=== PATIENT | male | born 1995 | race Hispanic/Latino ===

== ENCOUNTER 2021-03-20 19:27 | Emergency (ER) | payer SELFPAY ==
--- NOTE | 2021-03-20 20:51 | EDPHYS ---
Physician Documentation [facility] Name: Umberto Schilling Jr Age: 25 yrs Sex: Male : 1995 Arrival Date: 03/20/2021 Time: 19:34 Bed 12 Private MD: ED Physician Neto Drummond HPI: 03/20 19:55 This 25 yrs old Male presents to ER via Ambulatory with complaints of S/S of rn Covid. 19:55 The patient or guardian reports cough, flu symptoms, low-grade fever, myalgias, no rn appetite. Onset: The symptoms/episode began/occurred today. Severity of symptoms: At their worst the symptoms were mild, in the emergency department the symptoms are unchanged. Modifying factors: The symptoms are alleviated by nothing, the symptoms are aggravated by nothing. Associated signs and symptoms: Pertinent positives: fever, rhinorrhea, Pertinent negatives: chest pain, vomiting. The patient has not experienced similar symptoms in the past. The patient has not recently seen a physician. Patient reports here for Covid test. Reports fever/chills/congestion/cough/myalgias/fatigue that began today. States meenakshi tested yesterday and was positive for Covid. Denies any chronic medical problems. Not vaccinated. Denies shortness of breath.. Historical: - Allergies: 19:43 No Known Allergies; zb - PMHx: 19:43 None; zb - PSHx: 19:43 None; zb - Immunization history:: Client reports having NOT received the Covid vaccine. - Social history:: Smoking status: Patient reports the use of cigarette tobacco products, denies chronic smoking, but will smoke occasionally. - Family history:: not pertinent. - Hospitalizations: : No recent hospitalization is reported. ROS: 19:55 Constitutional: Positive for fever and chills Eyes: Negative for injury, pain, redness, rn and discharge, ENT: Positive for nasal congestion and loss of taste and smell Neck: Negative for injury, pain, and swelling, Cardiovascular: Negative for chest pain, palpitations, and edema, Respiratory: Positive for cough, negative for shortness of breath Abdomen/GI: Negative for abdominal pain, nausea, vomiting, diarrhea, and constipation, Back: Negative for injury and pain, : Negative for injury, bleeding, discharge, and swelling, MS/Extremity: Negative for injury and deformity, Skin: Negative for injury, rash, and discoloration, Neuro: Negative for headache, numbness, tingling, and seizure. 19:55 All other systems are negative. Exam: 19:55 Constitutional: Thin male no acute distress Head/Face: Normocephalic, atraumatic. rn Eyes: Pupils equal round and reactive to light, extra-ocular motions intact. Lids and lashes normal. Conjunctiva and sclera are non-icteric and not injected. Cornea within normal limits. Periorbital areas with no swelling, redness, or edema. ENT: No stridor Neck: Trachea midline, no thyromegaly or masses palpated, and no cervical lymphadenopathy. Supple, full range of motion without nuchal rigidity, or vertebral point tenderness. No Meningismus. Cardiovascular: Regular rate and rhythm. No pulse deficits. Respiratory: Speaking full sentences, unlabored. No increased work of breathing, no retractions or nasal flaring. Abdomen/GI: Soft, non-tender Skin: Warm, dry with normal turgor. Normal color with no rashes, no lesions, and no evidence of cellulitis. MS/ Extremity: Pulses equal, no cyanosis. Neurovascular intact. Full, normal range of motion. Equal circumference. Neuro: Awake and alert, GCS 15 Vital Signs: 19:41 BP 113 / 77; Pulse 85; Resp 18; Temp 97.8; Pulse Ox 99% on R/A; Weight 52.16 kg; Height zb 5 ft. 7 in. (170.18 cm); 19:41 Body Mass Index 18.01 (52.16 kg, 170.18 cm) zb MDM: 19:49 Patient medically screened. rn 20:49 Differential Diagnosis: Bronchitis Influenza Upper Respiratory Infection Viral Syndrome rn Pneumonia. Data reviewed: vital signs, nurses notes, lab test result(s), and as a result, I will discharge patient. Data interpreted: Pulse oximetry: on room air is 99 %. Interpretation: normal. Counseling: I had a detailed discussion with the patient and/or guardian regarding: the historical points, exam findings, and any diagnostic results supporting the discharge/admit diagnosis, lab results, the need for outpatient follow up, to return to the emergency department if symptoms worsen or persist or if there are any questions or concerns that arise at home. Special discussion: I discussed with the patient/guardian in detail that at this point there is no indication for admission to the hospital. It is understood, however, that if the symptoms persist or worsen the patient needs to return immediately for re-evaluation. ED course: COVID +, no oxygen requirement, will dc home. . 03/20 19:44 Order name: Flu; Complete Time: 20:31 zb 03/20 20:52 Order name: SARS-COV-2 RT PCR EDMS Administered Medications: No medications were administered Disposition Summary: 03/20/21 20:50 Discharge Ordered Location: Home rn Problem: new rn Symptoms: have improved rn Condition: Stable rn Diagnosis - SARS-associated coronavirus as the cause of diseases classified elsewhere rn - Acute upper respiratory infection, unspecified rn Followup: rn - With: Private Physician - When: As needed - Reason: Recheck today's complaints, Re-evaluation by your physician Discharge Instructions: - Discharge Summary Sheet rn - Viral Respiratory Infection, [id number] rn - COVID-19 rn - 10 Things You Can Do to Manage Your COVID-19 Symptoms at Home - [facility] rn Forms: - Medication Reconciliation Form rn - Thank You Letter rn - Antibiotic internet marketing specialist - Prescription Opioid Use rn - Work release form tt3 Signatures: Dispatcher [employer] EDNeto Menendez MD MD rn Brown, Zipporah, RN RN zb Corrections: (The following items were deleted from the chart) 19:59 19:45 CORONAVIRUS+ ordered. EDMS EDMS
--- NOTE | 2021-03-20 20:51 | ER ---
Nurse's Notes [facility] Name: Umberto Schilling Jr Age: 25 yrs Sex: Male : 1995 Arrival Date: 03/20/2021 Time: 19:34 Bed 12 Private MD: Diagnosis: SARS-associated coronavirus as the cause of diseases classified elsewhere;Acute upper respiratory infection, unspecified Presentation: 03/20 19:41 Chief complaint: Patient states: reports shortness of breath, body aches, fatigue that zb started today, denies fever. Coronavirus screen: Vaccine status: Patient reports being unvaccinated. muscle pain, shaking with chills, shortness of breath, Client presents with at least one sign or symptom that may indicate coronavirus-19. Standard/surgical mask placed on the client. Provider contacted for isolation considerations. Ebola Screen: Patient negative for fever greater than or equal to 101.5 degrees Fahrenheit, and additional compatible Ebola Virus Disease symptoms Patient denies exposure to infectious person. Patient denies travel to an Ebola-affected area in the 21 days before illness onset. No symptoms or risks identified at this time. Initial Sepsis Screen: Does the patient meet any 2 criteria? No. Patient's initial sepsis screen is negative. Does the patient have a suspected source of infection? No. Patient's initial sepsis screen is negative. Risk Assessment: Do you want to hurt yourself or someone else? Patient reports no desire to harm self or others. Onset of symptoms was March 20, 2021. 19:41 Method Of Arrival: Ambulatory zb 19:41 Acuity: CHEN 4 zb Historical: - Allergies: 19:43 No Known Allergies; zb - PMHx: 19:43 None; zb - PSHx: 19:43 None; zb - Immunization history:: Client reports having NOT received the Covid vaccine. - Social history:: Smoking status: Patient reports the use of cigarette tobacco products, denies chronic smoking, but will smoke occasionally. - Family history:: not pertinent. - Hospitalizations: : No recent hospitalization is reported. Screenin:15 Abuse screen: Denies threats or abuse. Denies injuries from another. Nutritional zb screening: No deficits noted. Tuberculosis screening: No symptoms or risk factors identified. Fall Risk None identified. Assessment: 20:13 General: Appears in no apparent distress. uncomfortable, Behavior is cooperative, zb Reports feeling ill for 0-12 hours, fatigue for 0-12 hours. Pain: Complains of pain in generalized body aches Pain currently is 7 out of 10 on a pain scale. Quality of pain is described as aching. Neuro: Level of Consciousness is awake, alert, obeys commands, Oriented to person, place, time. Cardiovascular: Patient's skin is warm and dry. Respiratory: Reports shortness of breath at rest cough that is non-productive, Airway is patent Respiratory effort is even, unlabored, Respiratory pattern is regular, symmetrical. Derm: Skin is intact, is healthy with good turgor, Skin is dry, Skin is normal, Skin temperature is warm. Musculoskeletal: Range of motion: intact in all extremities. Vital Signs: 19:41 BP 113 / 77; Pulse 85; Resp 18; Temp 97.8; Pulse Ox 99% on R/A; Weight 52.16 kg; Height zb 5 ft. 7 in. (170.18 cm); 19:41 Body Mass Index 18.01 (52.16 kg, 170.18 cm) zb ED Course: 19:34 Patient arrived in ED. wm 19:43 Neto Drummond MD is Attending Physician. rn 19:43 Triage completed. zb 19:43 Arm band placed on. zb 19:50 Indy Morgan RN is Primary Nurse. zb 20:15 Patient has correct armband on for positive identification. Pulse ox on. NIBP on. Door zb closed. Noise minimized. 20:58 No provider procedures requiring assistance completed. Patient did not have IV access em during this emergency room visit. Administered Medications: No medications were administered Outcome: 20:50 Discharge ordered by . rn 20:58 Discharged to home ambulatory. em 20:58 Condition: stable 20:58 Discharge instructions given to patient, Instructed on discharge instructions, follow up and referral plans. Demonstrated understanding of instructions, follow-up care. 20:59 Patient left the ED. em Signatures: Don Lam RN RN em Nieto, Roman, MD MD rn Brown, Zipporah, RN RN zb Marsh, Wendy Corrections: (The following items were deleted from the chart) 20:15 20:13 Respiratory: Airway is patent Respiratory effort is even, unlabored, Respiratory zb pattern is regular, symmetrical, zb
[2021-03-20 21:06] VITALS: BP 113/77; TEMP 97.8; O2SAT 99
== END 2021-03-20 20:59 | disposition home or self-care (01) ==
LOC: ER 19:27
DX: U07.1 COVID-19 (principal); J06.9 Acute upper respiratory infection, unspecified; F17.210 Nicotine dependence, cigarettes, uncomplicated
CPT/HCPCS: 87804; 99283; U0003

== ENCOUNTER → 2023-10-16 | Emergency (ER) | payer SELFPAY ==
[~2023-10-16] MED LIST: LIDOCAINE 1% MPF 5 ML VIAL ONE
--- OUTSIDE RECORDS SUMMARY | 2023-10-16 11:59 | XMS REPORT | Continuity of Care Document ---
Author Name Unknown Address [address] [place] [address] [facility] th[facility] Address [address] [facility] [address] [place] [address] Care Team Providers Care Dumpcart Driver Name Role Phone Pcp, Patient Does Not Have A Primary Care Physic kuldip Reginaldo Devlin MD Attending Clinician [phone] REGINALDO DEVLIN Attending Clinician Unavailable ALMAS SALOMON Attending Clinician Unavailable Almas Salomon NP Attending Clinician [phone] SHER BUTT Attending Clinician Unavailable Sher Weldon Attending Clinician [phone] Wilda Laurent DO Attending Clinician [phone] Problems Condition Name Condition Details Condition Category Status Onset Date Resolution Date Last Treatment Date Treating Clinician Comments Source No known active problems No known active problems Disease [facility] Allergies, Adverse Reactions, Alerts Allergy Name Allergy Type Status Severity Reaction(s) Onset Date Inactive Date Treating Clinician Comments Source NO KNOWN ALLERGIE S Drug Class Active [facility] Social History Social Habit Start Date Stop Date Quantity Comments Source [facility] Exposure to SARS-CoV-2 (event) 2022-04-22 00:00:00 2022-05-02 16:21:00 Unable to assess [facility] Sex Assigned At 1995 00:00:00 1995 00:00:00 [facility] Smoking Status Start Date Stop Date Source Tobacco smoking consumption unknown [facility] Medications Ordered Medication Name Filled Medication Name Start Date Stop Date Current Medication? Ordering Clinician Indication Dosage Frequency Signature (SIG) Comments Components Source nicotine (NICODERM) 14 mg/24 hr patch 1 Patch 10-03 22:15: 00 Yes 1{patch } 1 Patch, Topical, Administer over 24 Hours, Q24H, First dose on Tue10/04/23 at 1715, Until Discontinu ed, Routine [facility] ziprasidone (GEODON) injection 20 mg 10-03 09:00: 00 10-03 08:53 :00 No 20mg 20 mg, Intramuscu lar, ONCE, 1 dose, On Tue10/04/23 at 0400, STAT
Ch emical Restraint: Yes [facility] lithium carbonate CR 300 mg SR tablet 04-04 01:58: 46 Yes 300mg Take 1 tablet by mouth in the morning and 1 tablet in the evening. [facility] lithium carbonate CR 300 mg SR tablet 04-04 01:58: 46 Yes 300mg Take 1 tablet by mouth in the morning and 1 tablet in the evening. [facility] lithium carbonate CR 300 mg SR tablet 04-04 01:58: 46 Yes 300mg Take 1 tablet by mouth in the morning and 1 tablet in the evening. [facility] NaCl 0.9% (NS) bolus infusion 1,000 mL 2021-07 22:00: 00 05-03 00:42 :00 No 1000mL at 999 mL/hr, 1,000 mL, IV Infusion, ONCE, 1 dose, On 05/02/22 at 1700, OSCAR [facility] No known medications 2021-07 0 16:04: 50 No No known medication s [facility] Immunizations Ordered Immunization Name Filled Immunization Name Date Status Comments Source TD Pres-Free 2023-04-04 00:00:00 Completed [facility] TD Pres-Free Unknown Completed [facility] TD Pres-Free Unknown Completed [facility] Vital Signs Vital Name Observation Time Observation Value Comments S ource Systolic blood pressure 2023-10-05 00:27:00 129 mm[Hg] [facility] Diastolic blood pressure 2023-10-05 00:27:00 83 mm[Hg] [facility] Heart rate 2023-10-05 00:27:00 63 /min [facility] Respiratory rate 2023-10-05 00:27:00 16 /min [facility] Oxygen saturation in Arterial blood by Pulse oximetry 2023-10-05 00:27:00 99 /min [facility] Body temperature 2023-10-04 11:00:00 36 Celi [facility] Body height 2023-10-04 09:17:00 167.6 cm [facility] Body weight 2023-10-04 09:17:00 56.7 kg [facility] BMI 2023-10-04 09:17:00 20.18 kg/m2 [facility] Diastolic blood pressure 2023-04-24 00:37:00 76 mm[Hg] [facility] Heart rate 2023-04-24 00:37:00 72 /min [facility] Body temperature 2023-04-24 00:37:00 36.94 Celi [facility] Respiratory rate 2023-04-24 00:37:00 18 /min [facility] Body height 2023-04-24 00:37:00 167.6 cm [facility] Body weight 2023-04-24 00:37:00 56.7 kg [facility] BMI 2023-04-24 00:37:00 20.18 kg/m2 [facility] Oxygen saturation in Arterial blood by Pulse oximetry 2023-04-24 00:37:00 98 /min [facility] Systolic blood pressure 2023-04-24 00:37:00 112 mm[Hg] [facility] Systolic blood pressure 2023-04-04 06:21:00 134 mm[Hg] [facility] Diastolic blood pressure 2023-04-04 06:21:00 86 mm[Hg] [facility] Heart rate 2023-04-04 06:21:00 107 /min [facility] Body temperature 2023-04-04 06:21:00 36.72 Celi [facility] Respiratory rate 2023-04-04 06:21:00 16 /min [facility] Body height 2023-04-04 06:21:00 167.6 cm [facility] Body weight 2023-04-04 06:21:00 55.339 kg [facility] BMI 2023-04-04 06:21:00 19.69 kg/m2 [facility] Oxygen saturation in Arterial blood by Pulse oximetry 2023-04-04 06:21:00 99 /min [facility] Systolic blood pressure 2022-05-03 01:30:00 120 mm[Hg] [facility] Diastolic blood pressure 2022-05-03 01:30:00 83 mm[Hg] [facility] Heart rate 2022-05-03 01:30:00 74 /min [facility] Respiratory rate 2022-05-03 01:30:00 21 /min [facility] Oxygen saturation in Arterial blood by Pulse oximetry 2022-05-03 01:30:00 100 /min [facility] Body temperature 2022-05-02 21:30:00 36.17 Celi [facility] Body height 2022-05-02 21:30:00 165.1 cm [facility] Body weight 2022-05-02 21:30:00 52.164 kg [facility] BMI 2022-05-02 21:30:00 19.14 kg/m2 [facility] Procedures Procedure Date / Time Performed Performing Clinician Source URINALYSIS 2023-10-04 16:02:00 Reginaldo Devlin [facility] URINE DRUG (IMMUNOASSAY) - COMPREHENSIVE DRUG SCREEN W/O REFLEX 2023-10-04 16:02:00 Reginaldo Devlin [facility] ETHANOL 2023-10-04 14:01:00 Clark Kaplan [facility] COMP. METABOLIC PANEL (37064) 2023-10-04 09:17:00 Reginaldo Devlin [facility] SALICYLATE 2023-10-04 09:17:00 Reginaldo Devlin [facility] ETHANOL 2023-10-04 09:17:00 Reginaldo Devlin [facility] CBC WITH DIFF 2023-10-04 09:17:[address] [facility] COVID-19 (MOLECULAR TESTING NUCLEIC ACID AMPLIFICATION) 2023-10-04 09:17:00 Reginaldo Devlin [facility] COVID-19 (ID NOW RAPID TESTING) 2023-10-04 09:17:00 Reginaldo Devlin [facility] LAB ONLY COVID INTERPRETATION 2023-10-04 09:17:00 Reginaldo Devlin [facility] NOTICE OF PRIVACY PRACTICES 2023-04-24 00:28:34 Doctor Unassigned, [place] [facility] CONSENT/REFUSAL FOR DIAGNOSIS AND TREATMENT 2023-04-24 00:28:04 Doctor Unassigned, [place] [facility] ASSIGNMENT OF BENEFITS 2023-04-04 07:05:03 Docto r Unassigned, [place] [facility] NOTICE OF PRIVACY PRACTICES 2023-04-04 06:18:12 Doctor Unassigned, [place] [facility] CONSENT/REFUSAL FOR DIAGNOSIS AND TREATMENT 2023-04-04 06:17:18 Doctor Unassigned, [place] [facility] LACTIC ACID WHOLE BLOOD 2022-05-03 00:48:00 Morteza Devlin [facility] AC PANEL 21 + LACTIC ACID 2022-05-02 21:18:00 Wilda Laurent [facility] CREATINE KINASE 2022-05-02 21:16:00 Wilda Laurent [facility] COMP. METABOLIC PANEL (59650) 2022-05-02 21:16:00 Wilda Laurent [facility] SALICYLATE 2022-05-02 21:16:00 [facility] 2022-05-02 21:16:00 Wilda Laurent [facility] CBC WITH DIFF 2022-05-02 21:16:00 [facility]INALYSIS 2022-05-02 21:16:00 Wilda Laurent Un [facility] COVID-19 (ID NOW RAPID TESTING) 2022-05-02 21:16:00 Wilda Laurent [facility] URINE DRUG (IMMUNOASSAY) - COMPREHENSIVE DRUG SCREEN W/O REFLEX 2022-05-02 21:16:00 Wilda Laurent [facility] Encounters Start Date/Time End Date/Time Encounter Type Admission Type Attending [facility] Care Facility Care Department Encounter ID Source 2022-05-03 05:17:22 Outpatient [facility] [id number] [facility] 2023-10-04 04:05:00 2023-10-04 20:08:00 Emergency JessicacarinerenaReginaldo S [facility] 1.2.840.114 350.1.13.10 4.2.7.2.686 [id number] [facility] 2023-10-04 04:05:00 2023-10-04 20:08:00 Emergency X JESSICACARINERENAREGINALDO [facility] ERT [id number] [facility] 2023-05-20 02:15:29 2023-05-20 02:46:00 Emergency X MAGDARENAREGINALDO [facility] ERT [id number] [facility] 2023-04-23 19:47:00 2023-04-23 19:59:00 Emergency X JANANTHONY ALMAS [facility] ERT [id number] [facility] 2023-04-23 19:47:00 2023-04-23 19:59:00 Emergency Almas Salomon [facility] [id number] 350.1.13.10 4.2.7.2.686 [id number] [facility] 2023-04-04 01:24:00 2023-04-04 01:58:00 Emergency X SHER BUTT [facility] ERT [id number] [facility] 2023-04-04 01:24:00 2023-04-04 01:58:00 Emergency Sher Butt S [facility] 1.2.840.114 350.1.13.10 4.2.7.2.686 [id number] [facility] 2022-05-02 16:04:00 2022-05-02 20:59:00 Emergency X JESSICACARINERENA MORTEZASIA [facility] ERT [id number] [facility] 2022-05-02 16:04:00 2022-05-02 20:59:00 Emergency Wilda Laurent Wakili S [facility] 1.2.840.114 350.1.13.10 4.2.7.2.686 [id number] [facility] Results Test Description Test Time Test Comments Results Result Co mments Source [facility] Whole Snabf0665-95-78 01:02:31* Test Item Value Reference Range Interpretation Comme nts LACTIC ACID (test code = 3285985338) 2.93 mmol/L 0.5-2.2 H Lab Interpretation (test cod e = 42971-8) Abnormal [facility]20[facility]-09 21:48:02 SALICYLATE<10mg/L1 4:48 PM [facility] LABORATORYTherapeutic Range: ? Analgesic and Antipyretic Use ? 20- 100 mg/L ? ? Anti-Inflammatory Use ? 100-250 mg/L Toxic Range: ? Greater than 300 mg/LUnMethod[facility] HospitalACETAMINOPHEN2022-10-09 21:47:51* Test Item Value Reference Range Interpretation Comme nts ACETAMINOP (test code = 3523000300) 10-30 L LIU (test code = LIU) Toxic: Greater jurgen n 200 ug/mL @ 4 hour post ingestion or greater than 50 ug/mL @ 12 hour post ingestion Lab Interpretation (test code = 72570-7) Abnormal [facility] 21:40:34* Test Item Value Reference Range Interpretation Comme nts ALCOHOL (test code = 0686830195) 203 mg/dL LIU (test code = LIU) <10 Zngrtmyr69-578 Toxic>100 Depression of FINAL CANOE INSPECTOR>400 Fatalities Reported [facility]. METABOLIC PANEL (04938)2022-05-02 21:39:34* Test Item Value Reference Range Interpretation Comme nts NA (test code = 0935736209) 143 mmol/L 135-145 K (test code = 6441335400) 3.6 mmol/L 3.5-5 CL (test code = 0355270715) 106 mmol/L 98-108 CO2 TOTAL (test code = 2531935271) 22 mmol/L 23-31 L AGAP (test code = 0034257270) 2-16 BUN (test code = 9405786304) 10 mg/dL 7-23 GLUCOSE (test code = 4825859909) 88 mg/dL 70-110 CREATININE (test code = 0751737046) 0.88 mg/dL 0.6-1.25 TOTAL BILI (test code = 5271794300) 0.5 mg/dL 0.1-1.1 CALCIUM (test code = 7317259473) 9.6 mg/dL 8.6-10.6 T PROTEIN (test code = 6888038191) 7.6 g/dL 6.3-8.2 ALBUMIN (test code = 5884438259) 5.0 g/dL 3.5-5 ALK PHOS (test code = 9232304213) 55 U/L 34-122 ALTv (test code = 1742-6) 19 U/L 5-50 AST(SGOT) (test code = 4512470267) 26 U/L 13-40 eGFR (test code = 1356287562) mL/min/1.73m2 LIU (test code = LIU) Association of Glomerular Filtration Rate (GFR) and Staging of Kidney Disease* + --+ --+ ------+| GFR (mL/min/1.73 m2) ?| With Kidney Damage ?| ?Without Kidney Damage+ --------+ --------+ +| ?>90 ?| ?Stage one ?| ? Normal ?+ ---+ ---+ -------+| ?60-89 ?| ?Stage two ?| ? Decreased GFR ? + --+ --+ ------+| ?30-59 ?| ?Stage three ?| ? Stage three ? + --+ --+ ------+| ?15-29 ?| ?Stage four ? | ? Stage four ?+ ---+ ---+ -------+| ?<15 (or dialysis) ? ?| ?Stage five ? | ? Stage five ?+ ---+ ---+ -------+ *Each stage assumes the associated GFR level has been in effect for at least three months. ?Stages 1 to 5, with or without kidney disease, indicate chronic kidney disease. Notes: Determination of stages one and two (with eGFR >59mL/min/1.73 m2) requires estimation of kidney damage for at least three months as defined by structural or functional abnormalities of the kidney, manifested by either:Pathological abnormalities or Markers of kidney damage (including abnormalities in the composition of the blood or urine or abnormalities in imaging tests). Lab Interpretation (test code = 12467-1) Abnormal [facility] FBMXZC5577-47-65 21:39:34* Test Item Value Reference Range Interpretation Comme nts CK (test code = 9030737496) 136 U/L 33-194 Lab Interpretation (test cod e = 90071-3) Normal [facility] WITH VUEE3580-62-90 21:28:33* Test Item Value Reference Range Interpretation Comme nts WBC (test code = 6690-2) See_Comment [Automated [employer]] The system which generated this result transmitted reference range: 4.20 - 10.70 10*3/?L. The reference range was not used to interpret this result as normal/abnormal. RBC (test code = 789-8) See_Comment [Automated [employer] ge] The system which generated this result transmitted reference range: 4.26 - 5.52 10*6/?L. The reference range was not used to interpret this result as normal/abnormal. HGB (test code = 718-7) 16.1 g/dL 12.2-16.4 HCT (test code = 4544-3) 45.7 % 38.4-49.3 MCV (test code = 787-2) 84.8 fL 81.7-95.6 MCH (test code = 785-6) 29.9 pg 26.1-32.7 MCHC (test code = 786-4) 35.2 g/dL 31.2-35 H RDW-SD (test code = 81634-9) 38.4 fL 38.5-51.6 L RDW-CV (test code = 788-0) 12.5 % 12.1-15.4 PLT (test code = 777-3) See_Comment [Automated [employer]] The system which generated this result transmitted reference range: 150 - 328 10*3/?L. The reference range was not used to interpret this result as normal/abnormal. MPV (test code = 53550-7) 11.1 fL 9.8-13 NRBC/100 WBC (test code = 9859029988) See_Comment [Automated [employer] ssage] The system which generated this result transmitted reference range: 0.0 - 10.0 /100 WBCs. The reference range was not used to interpret this result as normal/abnormal. NRBC x10^3 (test code = 2701822493) See_Comment [Automated [employer]] The system which generated this result transmitted reference range: 10*3/?L. The reference range was not used to interpret this result as normal/abnormal. GRAN MAT (NEUT) % (test code = 770-8) 37.2 % IMM GRAN % (test code = 9732341164) 0.30 % LYMPH % (test code = 736-9) 47.5 % MONO % (test code = 5905-5) 8.3 % EOS % (test code = 713-8) 6.0 % BASO % (test code = 706-2) 0.7 % GRAN MAT x10^3(ANC) (test code = 9093102916) 2.69 10*3/uL 1.99-6.95 IMM GRAN x10^3 (test code = 1715556245) 0-0.06 LYMPH x10^3 (test code = 731-0) 3.43 10*3/uL 1.09-3.23 H MONO x10^3 (test code = 742-7) 0.60 10*3/uL 0.36-1.02 EOS x10^3 (test code = 711-2) 0.43 10*3/uL 0.06-0.53 BASO x10^3 (test code = 704-7) 0.05 10*3/uL 0.01-0.09 Lab Interpretation (test code = 90352-3) Abnormal [facility] Notes Date/Time Note Provider Source 2023-10-04 20:30:00 hxImPiguJ1c4qZBkUBTO 9JS219SyRJFVjm JHBEWRwD+gnCZG5szyJlycw14nF6w18072 -03-12T20:30:00 Pt denies any SI or HI ideation at this time. Pt states that he had a very stressful day yesterday and drink a lot of alcohol. Pt given information on local substance and alcohol rehabs in the area. [address]-5Knwo of care jibcBX8438-09-81K80:32:38Plan of care noteTXT1.2.840.643600.1.13.104.2.7 .2.551363|[id number] for patient lddx52248-1PgdmTKYIRGPSQFNTitdqiyy d C-CDA narrative [id number] J Hoot RNUT[address] Ay[id number] 00GSAMWOTQFMGBGNTLBHSFXW6841-94-42 T20:32:381.2.840.577942.1.72.3.15| 1.2.840.169776.1.13.104.2.7.2.7278 [id number] Angie Alcocer Kiara RN [facility] 2023-10-04 20:06:17 2GedwNui+WkkXNB4POLp GayLfKnUQMi05n FPLDlGsK/kw1d4TPup92gShguCdKnd0387 -03-12T20:06:17 8:04 PMPt seen and re-evaluatedDoes not have any SI/HI/hallucinations and denies ANY complaints at this timePt very remorseful about events last HS that lead to his ED visit and attributes same to ETOHSpouse will be taking pt [facility] upon dischargePt is being discharged to the company of his spouse and is stable, alert awake oriented x 4 [place] [address]-4Ndyrticsf department KcleSN5302-79-63I54:07:31Emergen department NoteTXT1.2.840.889198.1.13.104.2.7 .2.306659|[id number] for patient omty02113-8NarrIIQSSNRBSDCKiivssod d C-CDA narrative textUT[address] WvctEljfcpszbOgxuvljgyNMMN47101578 18QOEOWRIXYHWLUPLZVWYTVR6869-33-79 T20:07:311.2.840.967053.1.72.3.15| 1.2.840.483148.1.13.104.2.7.2.7278 [id number] [facility] 2023-10-04 20:04:46 VMsDjZ/5wgJyvXsW9S5N pBHPBRIQOzYc+y QmYVWg6px0CvyYxa0D4p0vjQSwe5s83522 -03-12T20:04:46 Awake, alert oriented X4, respiratory even and unlabored,skin w/d color appropriate for race, moves all ext well, pt encouraged to follow up with pcp and or return as neededPt given printed and verbal discharge instructions regarding Alcoholic intoxication, Suicidal ideation, HX of schizophrenia, hx of bipolar disorder. , patient verbralized understanding and signature obtained, patient denies any other concerns.Pt also given information on local rehab centers.Advised to seek medical attention for new/prolonged/worsening of symptoms,No adverse reaction to meds given in ER noted upon dischargePt [facility] [address]-5Eaeivxozf department DcrhAT2585-23-09T19:06:16[facility] NoteTXT1.2.840.385037.1.13.104.2.7 .2.400811|[id number] for patient aotd25035-6HtgaQDDOMEZFFDBNjzobpek d C-CDA narrative textUT[id number] 69GCEAPVGVNROTALJEBBJMGI4478-38-78 T20:06:161.2.840.804581.1.72.3.15| 1.2.840.312602.1.13.104.2.7.2.7278 [id number] [facility] 2023-10-04 20:04:33 vHiwRDF4zS56ETcw3iUy LLRanlDzCSt3A2 l0u0uFFpj36FGWHeG4s1tLyl8fICXe3203 -03-12T20:04:33 Psychiatric Re-Evaluation NoteEmerarkansas surgical hospital DepartmentDate: October 04, 2023I have reassessed the patient on this shift.The patient states or demonstrates that they are still having:Suicidal ideation or thoughts: NoHomicidal ideation or thoughts: NoAuditory and/or visual hallucinations: NoPsychosis, paranoia, or other mental instability impairing normal decision making: NoSuggested risk level of Miller: LowOn reassessment, the patient should still be transferred for psychiatric assessment and care: NoIf no, explain:The patient remains medically stable for psychiatric transfer. No If no, explain: Pt not suicidal, homicidal and not acutely psychotic. Pt every remorseful about the incidence that brought him to the ED and reports that he had taken a lot of Pint Becca vodka)The patient remains : Voluntary for psychiatric treatment as outpatient. Pt wants to go for alcohol rehabThe patient is being treated for the following medical conditions:NoneThe patient has been given or is being treated with the following medications:Orders Placed This EncounterMedicationsziprasidone (GEODON) injection 20 mgnicotine (NICODERM) 14 mg/24 hr patch 1 [place] [address]-7Pvtswobly department RjpfLY8026-92-06Z83:04:40[facility] department NoteTXT1.2.840.985549.1.13.104.2.7 .2.660056|[id number] for patient cxle59565-9UrkqCONOPHDYPMDVwssanus d C-CDA narrative textUT[address] WsdfXvzqfkwjqWurwtgiafJCBO27723617 85ROPVWXSIXWAFXMKNOJCOWF8922-59-47 T20:04:401.2.840.885982.1.72.3.15| 1.2.840.618724.1.13.104.2.7.2.7278 [id number] [facility] 2023-10-04 19:24:19 fXmwwQ2TlT2Zox5bdMiI Wf789QDk9qtQZ8 jnTpQSf8CNnuOypUm0nhp76ifmdGXK0029 -03-12T19:24:19 PT talked with and is enroute to pick him up. [address]7986-9Obtpicqkb department DagsNG7229-14-84X34:25:23[facility] NoteTXT1.2.840.836370.1.13.104.2.7 .2.466684|[id number] for patient aovh50458-2WtgzJHYEFASBYJPMxayspxs d C-CDA narrative [id number] 62FJRSNAQJNEFQTFUUISJQQT5992-26-07 T19:25:231.2.840.107311.1.72.3.15| 1.2.840.996920.1.13.104.2.7.2.7278 [id number] [facility] 2023-10-04 19:05:00 4cEmboGH2SXnr5jW7Z1Y hR/gOlegxCQq3z TKEe3HwS7qzsA9iQh6Vy5KDvUCXplf8059 -03-12T19:05:00 Assumed care of patient, received report from LAURA Garner. Pt A&OX4, Respiratory even & unlabored. Skin W&D and normal color, patient remains on suicide precaution, and sitter at bedside. Pt denies any SI or HI thoughts at this time. Pt states that he had a lot to drink last night and was having a very stressful day so he consumed a lot of alcohol. Pt denies any concerns at this time. Visitor at bedside. Pt awaiting dispo. Will continue to monitor. 60561-7Yulbvruud department YnioAI7247-34-34Y74:24:17[facility] NoteTXT1.2.840.328858.1.13.104.2.7 .2.298414|[id number] for patient jkrv46355-7KfpnCRWFTIIKMCNNofvhski d C-CDA narrative [id number] 19HRSOQQZSOEGUOUZWZSGIWI0761-45-69 T19:24:171.2.840.101303.1.72.3.15| 1.2.840.939299.1.13.104.2.7.2.7278 [id number] [facility] 2023-10-04 18:33:05 md6nst3/j4ula+7xQYaA dZP9IW1PmY3iSe fglURQ8NaYaYPCLl5i+4rxcwgJ5mvT9391 -03-12T18:33:05 Psychiatric Re-Evaluation NoteEmerarkansas surgical hospital DepartmentDate: October 04, 2023I have reassessed the patient on this shift.The patient states or demonstrates that they are still having:Suicidal ideation or thoughts: NoHomicidal ideation or thoughts: NoAuditory and/or visual hallucinations: NoPsychosis, paranoia, or other mental instability impairing normal decision making: NoSuggested risk level of Miller: LowOn reassessment, the patient should still be transferred for psychiatric assessment and care: YesIf no, explain:The patient remains medically stable for psychiatric transfer. Yes If no, explain:The patient remains {: Involuntary with ANA for psychiatric treatment.The patient is being treated for the following medical conditions:NoneThe patient has been given or is being treated with the following medications:Orders Placed This EncounterMedicationsziprasidone (GEODON) injection 20 mgnicotine (NICODERM) 14 mg/24 hr patch 1 PatchPhillip DO Rosaura 63438-4Vxohayepo department AhliLE2128-02-22G52:34:43[facility] NoteTXT1.2.840.504514.1.13.104.2.7 .2.755853|[id number] for patient ryrz22364-6ThscECVWWHKNUTPDyzoybeu d C-CDA narrative textEMCARE EMERGENCY PHYSICIAN STAFFEMCARE EMERGENCY PHYSICIAN STAFFUT[address] Pz[id number] 08PXOXYNMJDLQYUVURWAYHPV2159-96-83 T18:34:431.2.840.813577.1.72.3.15| 1.2.840.900770.1.13.104.2.7.2.7278 [id number] [facility] 2023-10-04 18:22:49 Ugg91fGbvwo2XoFvHrMk HLLY02TJAkfBrh d7Ytc3P/HchEupLw6HDEJi6tVg/bC+2023T18:22:49 Meal provided, patient eating. 00907-6Qyueexrmo department AxgwCI3564-60-55P16:22:59[facility] department NoteTXT1.2.840.415166.1.13.104.2.7 .2.805565|[id number] for patient lwxm38310-9OxilQDLBCXXWLNLGzwamqcn d C-CDA narrative qpmn109391189Npfgm N Dewoody RN[id number] 79ZMKXJKNVEVFTQSZQQFIXZR3588-81-51 T18:22:591.2.840.161415.1.72.3.15| 1.2.840.318200.1.13.104.2.7.2.7278 [id number] Yessenia Garner RN [facility] 2023-10-04 17:47:11 Ilu2HnK3quj4iGZvErO0 oY0f/peznXNaKB iAse50XxnI8w+dRMNXSs/8m4RJZCeH9458 -03-12T17:47:11 Patient showering, continuous observation remains in place. 36588-7Istockdgi department DzqcCQ5128-47-72W40:47:44[facility] NoteTXT1.2.840.556315.1.13.104.2.7 .2.619999|[id number] for patient kzjo94222-1SlvvCZFDEAQDASNNxhnbryi d C-CDA narrative [id number] 82CAZNEZQMLIMJHHQRMJWSMP5467-99-11 T17:47:441.2.840.908812.1.72.3.15| 1.2.840.792072.1.13.104.2.7.2.7278 [id number] [facility] 2023-10-04 13:15:24 izQmbZTz7vOdRdPj/Rn8 r6k6zp0vnSa5/C 5+lJI9JZQd6v/EERLrG3FfZLmZdDAV4842 -03-12T13:15:24 [facility] screener at bedside speaking with patient. 11000-3Swbxxgevu department VknbAM5805-16-43M81:15:36[facility] NoteTXT1.2.840.151026.1.13.104.2.7 .2.095847|[id number] for patient xffe89618-1TydzOTUEWZUUSGGPlvapyto d C-CDA narrative [id number] 82QRBONGPRMSORZQILPYKRRK2155-38-49 T13:15:361.2.840.664117.1.72.3.15| 1.2.840.994652.1.13.104.2.7.2.7278 [id number] [facility] 2023-10-04 13:12:50 znueqaZw03ebZ9jTIRgB uFIPlxfPEWIG2J 2rUg6m6Tz4ISnzTdEFqfzR6B6OlPbJ7105 -03-12T13:12:50 [facility] Screener arrived to ED. 83835-4Tlerpmnib[address] JbmmKG0041-10-82N26:13:03[facility] department NoteTXT1.2.840.747609.1.13.104.2.7 .2.096396|[id number] for patient vuiq10432-1ObnbGBHPVIAQIUACghzbnpl d C-CDA narrative [id number] 56PDASFQUAJPHFRIBYEGXZAX5596-08-75 T13:13:031.2.840.688051.1.72.3.15| 1.2.840.665476.1.13.104.2.7.2.7278 [id number] [facility] 2023-10-04 12:30:00 X0OB6Qtj8rrP+VrftluR M1EJ3EHVRH9OAv 8RKhd6CXwz2tdaJtw1LeY44BxO6wWt7114 -03-12T12:30:00 Meal tray refused. 47078-4Xybboxyij[address] LjccOL9906-58-16T53:06:38[facility] department NoteTXT1.2.840.322643.1.13.104.2.7 .2.201664|[id number] for patient nwfp93641-1EkgoGQZWZIBZPHSKsojzmeu d C-CDA narrative [id number] 74WUMXCBOCJISMTVANZLWIYA3441-04-42 T18:06:381.2.840.616661.1.72.3.15| 1.2.840.331826.1.13.104.2.7.2.7278 [id number] [facility] 2023-10-04 12:05:56 A6VBEEe+v7o3Mk34MVFf FcuPVBquYQ+qx5 XruKPoZhMCSCnqEY/er40OtlzKVBM11172 -03-12T12:05:56 Screener requested from [facility] at this time. 48455-2Nlwaewedx department AcjbPY5938-98-01I39:06:16[facility] NoteTXT1.2.840.045297.1.13.104.2.7 .2.537491|[id number] for patient okis12851-9ExdyCWBKECXMJYUTwsrrpki d C-CDA narrative text[id number] 52RIFQGPFWYBQPNJFPZERARG0669-41-75 T12:06:161.2.840.966780.1.72.3.15| 1.2.840.311684.1.13.104.2.7.2.7278 [id number] [facility] 2023-10-04 10:43:51 Airio5BTS3+ZkYYV85+h H7BW0eg2LE5d5n jA860DPhsQpGNT5kFwMMUl3zxIHaIU6198 -03-12T10:43:51 Problem: Restraint UseGoal: Absence of restraint indicationsOutcome: Progressing as expectedProblem: Restraint UseGoal: Absence of restraint-related injuryOutcome: Progressing as expectedProblem: Suicide, Risk ofGoal: Absence of self-harmOutcome: Progressing as expected 94219-3Nbtu of care jbveEU4627-49-67G28:44:03Plan of care noteTXT1.2.840.498729.1.13.104.2.7 .2.214724|[id number] for patient tfgz61257-3EnyjUTQGLGFUHJRDbfugcjt d C-CDA narrative text[id number] 66BUJQFKVCLEBIHHRYWXIJYM0164-22-54 T10:44:031.2.840.134060.1.72.3.15| 1.2.840.238329.1.13.104.2.7.2.7278 [id number] [facility] 2023-10-04 07:30:00 L0CA0Sto9veS+VrftluR U3UV6PLRNE6IAp 0QPst7HWxo1pfpSqd6WqZ47ZtT9pDd8000 -03-12T07:30:00 Meal tray refused. 78203-2Xsqkokczl department HncdAF5621-60-00S43:06:28Emergency department NoteTXT1.2.840.277903.1.13.104.2.7 .2.229351|[id number] for patient mini82008-2FgydKOPVIWRIPTSBtcwqkkf d C-CDA narrative text[id number] 46OPCIUEGDRTLUGLJCASCQBP5458-72-21 T18:06:281.2.840.567214.1.72.3.15| 1.2.840.751801.1.13.104.2.7.2.7278 [id number] [facility] 2023-10-04 07:02:34 xQ0fOyWIzJ0sX2s3VXec uhFZ33Q+lsXXeY 2cxH/z7YGg8OoYoqs28/KhmgJHRDAM1342 -03-12T07:02:34 Nurse ReportReport given to Sulma SANCHEZ. Chief complaint, assessment findings. Plan of care discussed with [place] [address]-1Jaawubwyu department QiifWU4740-50-86C98:03:37[facility] NoteTXT1.2.840.374519.1.13.104.2.7 .2.807434|[id number] for patient delv55105-3WjcbBPBURBDYGXOQorjwfrx d C-CDA narrative [id number] 94EOZQIVDOVWDTGQCMJVESNE8193-69-88 T07:03:371.2.840.612400.1.72.3.15| 1.2.840.871058.1.13.104.2.7.2.7278 [id number] [facility] 2023-10-04 05:30:00 zYjGuayt0JuKK2ApHz9l basFQJ2Cq65694 qrGJ7ik/j/iJKYkm4VPVz5jaxO+tSX3881T05:30:00 Pt was provided a warm blanket. 27147-2Nuvkbeexc department MmciMD9367-25-39G20:39:45[facility] NoteTXT1.2.840.194926.1.13.104.2.7 .2.761253|[id number] for patient mnuv29038-6AkipNOTLSNSHYVSKknyiatx d C-CDA narrative text[id number] 74OPBKMTQPMQITYDUZFLUFFV2094-75-55 T06:39:451.2.840.489574.1.72.3.15| 1.2.840.061414.1.13.104.2.7.2.7278 [id number] [facility] 2023-10-04 05:00:00 hGkq+8KfJep9cd+Cn/vx OrxUTvxCP1sbMV 26Knl++QUXO9Bz5i0j5M/HeGZe8Ix76142 -03-12T05:00:00 When asked by RN, pt denies any intent to harm himself or anyone else @ this time. States "No I'll be good, I am just cold." ERP notified 26836-4Gdynhuhyf department QzrrFE0196-54-80G42:00:19Emergency department NoteTXT1.2.840.259566.1.13.104.2.7 .2.771499|[id number] for patient kcqy78439-9KsenWNIUMHGKIQEQzwouvap d C-CDA narrative [id number] 13UMNVAKBIABKBLFYCVCAKBG2122-01-94 T06:00:191.2.840.506524.1.72.3.15| 1.2.840.045752.1.13.104.2.7.2.7278 [id number] [facility] 2023-10-04 04:23:47 T06R8g2YY/DZ0yO2Vbfh CZiEkAB7QGWBCh fKtmVVU9SuH3EgCxGEkDxded/BlubU9654 -03-12T04:23:47 Problem: Restraint UseGoal: Absence of restraint indicationsOutcome: Progressing as expectedGoal: Absence of restraint-related injuryOutcome: Progressing as expectedProblem: Suicide, Risk ofGoal: Absence of self-harmOutcome: Progressing as expected 60031-3Ckcl of care prbkIZ8534-39-75U52:23:55Plan of care noteTXT1.2.840.560990.1.13.104.2.7 .2.814695|[id number] for patient iulr48809-5QlbaNMLJNPQOTVJEtphqsto d C-CDA narrative textUT[address] JqmaDidbbbdwaWrixxoaqvPIRZ40639739 35YFXYMOMHGAJXBHQKJSJMFD0711-07-78 T04:23:551.2.840.806802.1.72.3.15| 1.2.840.729663.1.13.104.2.7.2.7278 [id number] [facility] 2023-10-04 04:17:00 ZQa9oymv391ruw/f07qV DABoCZmyUsyk3D vGz1dHZnNNnueiSoboYasQAN/TD9rA4771 -03-12T04:17:00 Pt brought in by [place] [facility] after being called by mental health officer who was transporting pt to [facility]. Mental health officer reported that on the way to the hospital pt suddenly began thrashing around in the back seat of cruiser. Officer called EMS out believing pt was seizing, however, when officer got to the pt he found that pt was hitting himself and saying he was going to kill himself. On arrival to ED pt was extremely aggressive, EMS and officer were physically restraining him because he was attempting to strangle himself with the seatbelts that were attached. At this time Geodon was ordered and administered. RN's in ER as well as EMS and officer removed pt's glasses, shoes, jacket, & belt, and attempted to get paper scrubs top on, pt then grabbed the scrub top and attempted to strangle himself w/it. Pt was then restrained w/soft restraints after being transferred to ER bed. Pants were unable to be removed @ this time. All other belongings were removed before soft restraints were put in place. 87796-6Bskafzusd department Triage xmatWW0970-22-96N86:50:51[facility] Triage noteTXT1.2.840.935883.1.13.104.2.7 .2.110480|[id number] for patient bshh11307-1Tnlowaspm department NoteLNNARRATIVEFormatted C-CDA narrative lzlj205349651Cqohvm L Williams RNUT[id number] 57FURAYFSCLTUTFLACYNNOYF7002-76-71 T04:50:511.2.840.989071.1.72.3.15| 1.2.840.509694.1.13.104.2.7.2.7278 [id number] Donna Laurent RN [facility] 2023-10-04 03:53:41 cVvfOUjnh/zkcJ+wloyM 52ct/lsyEjsl6d IrHLcpR5cX4zQJRiuR4wwwmpPhkpyG1343 -03-12T03:53:41 Suicide Risk - Assessment and PlanColumbia:1) Have you wished you were or could go to sleep and not wake up?: (P) Yes2) Have you had thoughts of killing yourself?: (P) Yes3) Have you been thinking about how you might kill yourself?: (P) (Will not respond)4) Suicidal ideation with some intent?: (P) (No response)5) Have you worked out the details of the plan AND intend to follow through?: (P) (No response)6) Suicidal Behavior or preparation for suicide?: (P) (No response)Miller Score:Suggested risk level: (P) LowSAFE-T:Presenting symptoms: (P) (Highly agitated and combative)Activating Events: (P) None identifiedPrecipitants / stressors: (P) None identifiedProtective factors: (P) None identifiedAccess to Lethal Means:Does patient have access to a gun or access to guns?: (P) (Unknown)Specific Questions of Thoughts, Plans, Intent:Frequency- how many times have you had these thought?: (P) (No response)2.Duration - When you have the thoughts, how long do they last?: (P) (Will not respond)3.Controllability - could/can you stop thinking about killing yourself or wanting to if you want to? "Is it easy, a little hard, very hard, or are you unable?": (P) (No response)4.Deterrents - are there things, anyone or anything (family, uatsdin, pain of ) that have stopped you from wanting to or acting on thoughts of committing suicide?: (P) (Will not respond)Behavior Assessment:1.Were there preparatory acts like buying pills, guns, giving things away, or writing suicide note?: (P) (Unknown)3.Was an attempt interrupted by someone else?: (P) (Unknown)Stratification:High Suicide Risk Moderate Suicide Risk Low Suicide Risk?? Suicidal ideation with intent or intent with plan in past month (C-SSRS Suicidal Ideation #4 or #5)Or?? Suicidal behavior within past 3 months (C-SSRS Suicidal Behavior) ?? Suicidal ideation with method, WITHOUT plan, intent or behaviorin past month (C-SSRS Suicidal Ideation #3)Or?? Suicidal behavior more than 3 months ago (C-SSRS Suicidal Behavior Lifetime)Or?? Multiple risk factors and few protective factors ?? Wish to or Suicidal Ideation WITHOUT method, intent, plan or behavior (C-SSRS Suicidal Ideation #1 or #2)Or?? Modifiable risk factors and strong protective factorsOr? No reported history of Suicidal Ideation or BehaviorLocation / Risk:Inpatient / High:Suicidal ideation with intent and with realistic plan and no protective factors in past month OR suicidal behavior within the past 3 months. Includes suicidal behavior as reason for admission.a. Mitigate the risk for suicide by instituting one-one monitoring, removing objects that pose a risk for self-harm, assessing objects brought into a room by visitors, using safe transportation procedures when moving patient to another part of the unit or another part of the hospital, and performing the checklist recommendations for a safe environment.b. Food tray in plastic or paper containers with plastic utensils (no knives or aluminum cans).c. Transfer to Inpatient Psychiatry facility/Psychiatry Consult once medically cleared.d. Follow-up determined by the inpatient Psychiatric facility. 64922-5Casxwjqkjs + Plan pljfXN9955-27-49S62:54:17Evaluatio n + Plan noteTXT1.2.840.062805.1.13.104.2.7 .2.556627|[id number] for patient recg11834-2GjcpZNWDYWMILQLRjcdyxbn d C-CDA narrative textUT[address] BfvjCd[id number] 61PYBLSIOVNRXUXBLPFDRKTX3737-51-84 T03:54:171.2.840.546595.1.72.3.15| 1.2.840.981344.1.13.104.2.7.2.7278 [id number] [facility] 2023-10-04 03:46:00 fHg0OZAncVJB2St8aBUf 8PF2YJII26jYt+ VBJlR4ImymXVW5KgRVxiVCKzYexCVQ4244 -03-12T03:46:00 [facility] Emergency Department NotePatient Name: Alicia Ordaz Jr.Date of : 1995 28 year old maleTreatment Room: Room/bed info not foundMedical Record Number: [id number] Care Physician: PATIENT DOES NOT HAVE A PCPPatient Escorted by: Law enforcement [8]Mode of Arrival: EMS - [facility] ([place]) [43]EMS Treatment Prior to ED Arrival:HOSE SEAMER treatment: Unable to assessTravel and Exposure Screening:SymptomsDoes patient have any of these symptoms?: (not recorded)Exposure ScreeningHas patient had contact with someone with a communicable disease in the last month?: (not recorded)Diseases exposed to:: (not recorded)Is Patient ?: (not recorded)Exposure Date: (not recorded)Chief Complaint:Chief ComplaintPatient presents with SUICIDALHistory of Present Illness:Alicia Ordaz Jr. is a 28 year old male with numerous psychiatric conditions as listed below who [facility] of severe agitation/SI/HI. Pt was being taken to a Psychiatric facility when he became agitated and combative and was thus diverted to the ED for acute management. Pt uncooperative with history or examinationHistory provided by: Patient, medical records, EMS personnel and policeHistory limited by: Psychiatric disorderLanguage commercial pest control representative used: NoMENTAL ILLNESSPresenting symptoms: aggressive behavior, agitation, homicidal ideas and suicide attemptPatient accompanied by: Law enforcementDegree of incapacity (severity): Unable to specifyOnset quality: Unable to specifyTiming: Unable to specifyProgression: Unable to specifyTreatment compliance: Unable to specifyPast Medical History/Immunizations:Past Medical History:Diagnosis Date Bipolar disorder, unspecified Depression Schizophrenia, unspecifiedTetanus received in last 5 years: UnknownAllergies:No Known AllergiesPast Social History:Substance & Sexual ActivityNo substance use or sexual activity history on file.Past Surgical History:History reviewed. No pertinent surgical history.Review of Systems:Review of SystemsUnable to perform ROS: Psychiatric disorderPsychiatric/Behavioral: Positive for agitation and homicidal ideas.Physical Exam:ED Triage VitalsWeight 10/04/23416 56.7 kg (125 lb)Actual or estimated 10/04/23416 Estimated by healthcare providerHeight 10/04/23416 1.676 m (5' 6")BP 10/04/23416 112/75Pulse 10/04/23416 84Resp 10/04/23 0400 24Temp 10/04/23 0600 36 ?C (96.8 ?F)Temp source 10/04/23 0600 AxillarySpO2 10/04/23 0417 97 %Measured on 10/04/23416 Room airPhysical ExamVitals and nursing note reviewed.Constitutional:General: He is not in acute distress.Appearance: Normal appearance. He is well-developed. He is not ill-appearing, toxic-appearing or diaphoretic.Comments: Pt highly agitated, combative, requiring sailing officer/EMS/ED staff to restrainHENT:Head: Normocephalic and atraumatic.Nose: Nose normal.Mouth/Throat:Mouth: Mucous membranes are moist.Pharynx: Oropharynx is clear.Eyes:General: No scleral icterus.Right eye: No discharge.Left eye: No discharge.Extraocular Movements: Extraocular movements intact.Conjunctiva/sclera: Conjunctivae normal.Pupils: Pupils are equal, round, and reactive to light.Cardiovascular:Rate and Rhythm: Regular rhythm. Tachycardia present.Pulses: Normal pulses.Heart sounds: Normal heart sounds.Pulmonary:Effort: Pulmonary effort is normal. No respiratory distress.Breath sounds: Normal breath sounds. No stridor. No wheezing, rhonchi or rales.Chest:Chest wall: No tenderness.Abdominal:General: Abdomen is flat. Bowel sounds are normal. There is no distension.Palpations: Abdomen is soft. There is no mass.Tenderness: There is no abdominal tenderness. There is no right CVA tenderness, left CVA tenderness, guarding or rebound.Hernia: No hernia is present.Musculoskeletal:General: No swelling, tenderness, deformity or signs of injury. Normal range of motion.Cervical back: Normal range of motion and neck supple. No rigidity or tenderness.Lymphadenopathy:Cervica l: No cervical adenopathy.Skin:General: Skin is warm and dry.Capillary Refill: Capillary refill takes less than 2 seconds.Coloration: Skin is not jaundiced or pale.Findings: No bruising, erythema, lesion or rash.Neurological:General: No focal deficit present.Mental Status: He is alert and oriented to person, place, and time.Psychiatric:Behavior: Behavior normal.Thought Content: Thought content normal.Judgment: Judgment normal.Radiology:No orders to displayLab Results:Lab ResultsCOMP. METABOLIC PANEL (37824) - AbnormalResult Value Ref RangeNA 144 135 - 145 mmol/LK 3.8 3.5 - 5.0 mmol/LCL 112 (*) 98 - 108 mmol/LCO2 TOTAL 20 (*) 23 - 31 mmol/LAGAP 12 2 - 16BUN 11 7 - 23 mg/dLGLUCOSE 102 70 - 110 mg/dLCREATININE 0.77 0.60 - 1.25 mg/dLTOTAL BILI 0.3 0.1 - 1.1 mg/dLCALCIUM 9.5 8.6 - 10.6 mg/Maritza PROTEIN 7.7 6.3 - 8.2 g/dLALBUMIN 4.7 3.5 - 5.0 g/dLALK PHOS 64 34 - 122 U/LALTv 15 5 - 50 U/LAST(SGOT) 25 13 - 40 U/LeGFR 125.8 mL/min/1.49v0TRY WITH DIFF - AbnormalWBC 5.85 4.20 - 10.70 10*3/?LRBC 5.08 4.26 - 5.52 10*6/?LHGB 15.2 12.2 - 16.4 g/dLHCT 44.2 38.4 - 49.3 %MCV 87.0 81.7 - 95.6 fLMCH 29.9 26.1 - 32.7 pgMCHC 34.4 31.2 - 35.0 g/dLRDW-SD 40.2 38.5 - 51.6 fLRDW-CV 13.0 12.1 - 15.4 %PLT 264 150 - 328 10*3/?LMPV 11.0 9.8 - 13.0 fLNRBC/100 WBC 0.0 0.0 - 10.0 /100 WBCsNRBC x10^3 <0.01 10*3/?LGRAN MAT (NEUT) % 49.3 %IMM GRAN % 1.00 %LYMPH % 36.4 %MONO % 4.4 %EOS % 8.0 %BASO % 0.9 %GRAN MAT x10^3(ANC) 2.88 1.99 - 6.95 10*3/uLIMM GRAN x10^3 0.06 0.00 - 0.06 10*3/uLLYMPH x10^3 2.13 1.09 - 3.23 10*3/uLMONO x10^3 0.26 (*) 0.36 - 1.02 10*3/uLEOS x10^3 0.47 0.06 - 0.53 10*3/uLBASO x10^3 0.05 0.01 - 0.09 10*3/uLACETAMINOPHEN - AbnormalACETAMINOP <10.0 (*) 10.0 - 30.0 ug/mLCOVID-19 (ID NOW RAPID TESTING) - UeyvvbPAHA-FoM-5 Rapid ID NOW Not Detected Not DetectedETHANOLALCOHOL 154 mg/dLSALICYLATESALICYLATE <10 mg/LURINE DRUG (IMMUNOASSAY) - COMPREHENSIVE DRUG SCREEN W/O REFLEXURINALYSISCOVID-19 (MOLECULAR TESTING - NUCLEIC ACID AMPLIFICATION)Orders and Treatments:Orders Placed This EncounterProcedures Urine Drug (Immunoassay) Comprehensive Drug Screen w/o Reflex Comprehensive Metabolic Panel (99525) CBC with Differential Ethanol (ETOH) Level Urinalysis COVID-19 (ID NOW TESTING) COVID-19 (MOLECULAR TESTING - NUCLEIC ACID AMPLIFICATION) Acetaminophen Salicylate Lab Only COVID InterpretationOrders Placed This EncounterMedications ziprasidone (GEODON) injection 20 mgFirst Provider Eval:ED EventsDate/Time Event User Urfuyyeb71/12/24 0346 Medical Screening Begins REGINALDO DEVLIN MD --10/04/23 034 First Provider Evaluation REGINALDO DEVLIN MD --ED COURSEED Course as of 10/04/23 1157Tue Oct 03 Medically cleared. [PS]ED Course User Index[PS] Clark Kaplan, DODiagnosis/Impression as of 10/04/23 1157Suicidal ideationAlcoholic intoxication without complicationHx of schizophreniaHx of bipolar disorderProcedures:ProceduresMDM:M edical Decision MakingAmount and/or Complexity of Data ReviewedLabs: ordered.RiskPrescription drug management.Flowsheet Documentation:7:[address] Kaplan at shift change pending labs, re-evaluation and for final dispositionEvaluation of patient's immediate situation: Suicidal;Violent;Combative;Agitate d;UncooperativePatient's reaction to intervention: ImprovedPatient's medical condition: StablePatient's behavariol condition: StableEvaluation additional comments: Will D/C restraints at this timeScoring Tools:No data recordedDisposition/Condition:ED DispositionNoneDischarge Medications:Patient's MedicationsSTART taking these medicationsNo medications on fileCONTINUE taking these medications which have NOT CHANGEDLITHIUM CARBONATE CR 300 MG SR TABLET Take 1 tablet by mouth in the morning and 1 tablet in the evening.START taking Modified Medications as PrescribedNo medications on fileSTOP taking these medicationsNo medications on fileFollow-up:Electronically signed by:Reginaldo Devlin MD10/04/23 0703 94756-5Qjnpxzjqw Emergency department HcipEY6954-47-88U05:03:42[facility] department NoteTXT1.2.840.787767.1.13.104.2.7 .2.909406|[id number] for patient lzib24941-2Njewlkdph department NoteLNNARRATIVEFormatted C-CDA narrative textUT13 [address] StreetUh[id number] 62OZHENARMXKLRAGAAARCJOD2679-88-20 T07:03:421.2.840.125299.1.72.3.15| 1.2.840.492188.1.13.104.2.7.2.7278 [id number] [facility] 2023-10-04 00:00:00 pjRqoTYUa85SXkCxSJgW TX+im2tKzVCXIM /phaESHb+7DZ1j7l8VBCCZ5wYqJphy5104 -03-12T00:00:00 [place] [address]-2Jrkvxzspf department PabqSR1418-38-42T37:57:39[facility] NoteTXT1.2.840.290928.1.13.104.2.7 .2.566209|[id number] for patient inis03103-7NluqOQXRJSABRXMGuyhbkzn d C-CDA narrative [id number] 25EWQYMJDNEDMZUGAVJVKJKH9839-70-86 T05:57:391.2.840.028929.1.72.3.15| 1.2.840.266791.1.13.104.2.7.2.7278 [id number] [facility] 2023-04-04 01:57:40 kEQt+z8nOh+zz3yxP7SQ e7w3hSKh9u8yU3 6jQOHLm1Qfk6akz3xXe/v3ykIMV5sW7356 -09-11T01:57:40 Pt discharged home following ERP eval. Given all education and information regarding wound care; s/s of infection; and follow up. Patient verbalized understanding. Wound dressed before discharge. Tetanus updated. Alert and ambulatory to pov, no further concerns. 96509-4Nmvhigsfq department HfrzXE7580-60-32S24:58:30[facility] NoteTXT1.2.840.996728.1.13.104.2.7 .2.851608|[id number] for patient woum39574-6HhwgLSKFVSJTJF[id number] 01DTQXYQJOPQPNMBADZKUBMH3311-91-26 T01:58:301.2.840.264727.1.72.3.15| 1.2.840.058258.1.13.104.2.7.2.7278 [id number] [facility] 2023-04-04 01:20:27 EbUZiI0N2Z4kGj/QidJS tFpVhDAYPdg+Wt alr4l2El3kEsXV2XeS1JKzfTet8pnU9998 -09-11T01:20:27 Pt to ed via pov. Vss. C/o R thumb laceration that happened yesterday while preparing a chicken. No active bleeding. Patient skin with "filet " appearance. 17249-4Qocxhtehm department Triage qanxXP2175-90-47V64:21:40[facility] Triage noteTXT1.2.840.805273.1.13.104.2.7 .2.095974|[id number] for patient laof50005-0Zojjdqvon department NoteLNUT[address]Wr[id number] 25GGWHNPTIMJBMRPFLFBVEON9969-10-12 T01:21:401.2.840.580897.1.72.3.15| 1.2.840.500936.1.13.104.2.7.2.7278 [id number] [facility]
--- NOTE | 2023-10-16 13:14 | ER ---
Nurse's Notes [facility] Name: Umberto Schilling Jr Age: 28 yrs Sex: Male : 1995 Arrival Date: 10/16/2023 Time: 11:55 Bed 12 Private MD: Diagnosis: Laceration without foreign body of right middle finger without damage to nail Presentation: 10/15 12:00 Chief complaint: Patient states: Was cutting dog flea collar with knife and nj1 accidentally cut his right middle finger. Coronavirus screen: Vaccine status: Patient reports being unvaccinated. Ebola Screen: Patient denies travel to an Ebola-affected area in the 21 days before illness onset. Initial Sepsis Screen: Does the patient meet any 2 criteria? No. Patient's initial sepsis screen is negative. Does the patient have a suspected source of infection? No. Patient's initial sepsis screen is negative. Risk Assessment: Do you want to hurt yourself or someone else? Patient reports no desire to harm self or others. Onset of symptoms was October 16, 2023. 12:00 Method Of Arrival: Ambulatory nj1 12:00 Acuity: CHEN 4 nj1 Triage Assessment: 12:05 General: Appears in no apparent distress. comfortable, Behavior is calm, cooperative, nj1 appropriate for age. 12:05 Pain: Denies pain. Injury Description: Laceration sustained to palmar aspect of distal nj1 phalanx of right middle finger is clean, 0.5 to 2.5 cm long, bleeding moderately. Historical: - Allergies: 12:02 No Known Allergies; nj1 - PMHx: 12:02 Anxiety; Bipolar disorder; depressive disorder; Schizophrenia; nj1 - Immunization history:: Client reports having NOT received the Covid vaccine. Last tetanus immunization: < 5 years ago. - Social history:: Smoking status: Reported history of juuling and/or vaping. Screenin:40 [facility] ED Fall Risk Assessment (Adult) History of falling in the last 3 months, ph including since admission No falls in past 3 months (0 pts) Score/Fall Risk Level 0 - 2 = Low Risk. Abuse screen: Denies threats or abuse. Denies injuries from another. Nutritional screening: No deficits noted. Tuberculosis screening: No symptoms or risk factors identified. Vital Signs: 12:00 BP 125 / 91; Pulse 86; Resp 16; Temp 97.2(TE); Pulse Ox 100% ; Weight 56.7 kg; Height 5 nj1 ft. 6 in. ; Pain 0/10; 12:00 Body Mass Index 20.18 (56.70 kg, 167.64 cm) nj1 12:00 Pain Scale: Adult nj1 ED Course: 11:57 Patient arrived in ED. mr 12:02 Triage completed. nj1 12:03 Arm band placed on left wrist. nj1 12:08 Stephan[facility] Bet[facility]C [facility]. kb 12:08 Bebeto Connor MD is Attending Physician. kb 13:40 Mita Keyes, RN is Primary Nurse. ph 13:41 No provider procedures requiring assistance completed. Patient did not have IV access ph during this emergency room visit. Administered Medications: 12:37 Drug: Lidocaine Infiltration (1 %) 1 vials 5 ml Infiltration once; to bedside {Note: nj1 Given to Anupama Bethea TAXICAB DRIVER for administration.} Volume: 5 ml; Route: Infiltration; 12:37 Not Given (Had vaccine within last 2 yearss): boostrix tdap0.5 ml IM once; as a single nj1 dose Medication: 13:40 VIS not applicable for this client. ph Outcome: 13:13 Discharge ordered by MD. kb 13:41 Discharged to home ambulatory, ph 13:41 Condition: good 13:41 Discharge instructions given to patient, Instructed on discharge instructions, follow up and referral plans. wound care, Demonstrated understanding of instructions, follow-up care, wound care, 13:41 Patient left the ED. ph Signatures: Stephania Bethea FNP-C [employer]-Ckb Mary Jo Mera, Reg Reg mr Mita Keyes, RN RN ph Cat Stovall RN RN nj1 Corrections: (The following items were deleted from the chart) 12:08 12:05 Injury Description: Laceration nj1 nj1
--- NOTE | 2023-10-16 13:14 | EDPHYS ---
Physician Documentation [facility] Name: Umberto Schilling Jr Age: 28 yrs Sex: Male : 1995 Arrival Date: 10/16/2023 Time: 11:55 Bed 12 Private MD: ED Physician Bebeto Connor HPI: 10/15 13:10 This 28 yrs old Male presents to ER via Ambulatory with complaints of Finger kb laceration. 13:11 Pt is a 28 year old male who presents for laceration to right middle finger. States he kb was cutting the excess off of a flea collar and accidentally cut his finger. Denies any other injuries. Historical: - Allergies: 12:02 No Known Allergies; nj1 - PMHx: 12:02 Anxiety; Bipolar disorder; depressive disorder; Schizophrenia; nj1 - Immunization history:: Client reports having NOT received the Covid vaccine. Last tetanus immunization: < 5 years ago. - Social history:: Smoking status: Reported history of juuling and/or vaping. ROS: 13:10 Constitutional: As per HPI kb Exam: 13:10 Constitutional: This is a well developed, well nourished patient who is awake, alert, kb and in no acute distress. Head/Face: Normocephalic, atraumatic. ENT: Moist Mucous membranes Cardiovascular: Regular rate Respiratory: Respirations even and unlabored. No increased work of breathing. Talking in full sentences MS/ Extremity: Pulses equal, no cyanosis. Neurovascular intact. Full, normal range of motion. Neuro: Awake and alert, GCS 15, oriented to person, place, time, and situation. Moves all extremities. Normal gait. 13:10 Skin: injury, laceration(s), the wound is approximately 1.5 cm(s), of the palmar aspect of distal phalanx of right middle finger, that can be described as clean, no foreign body, linear, without bleeding, Vital Signs: 12:00 BP 125 / 91; Pulse 86; Resp 16; Temp 97.2(TE); Pulse Ox 100% ; Weight 56.7 kg; Height 5 nj1 ft. 6 in. ; Pain 0/10; 12:00 Body Mass Index 20.18 (56.70 kg, 167.64 cm) nj1 12:00 Pain Scale: Adult nj1 Laceration: 13:10 Wound Repair of 1.5cm ( 0.6in ) subcutaneous laceration to dorsal aspect of distal kb phalanx of right middle finger. Linear shaped.. Distal neuro/vascular/tendon intact. Anesthesia: Wound infiltrated with 0.5 mls of 1% lidocaine. Wound prep: Extensive cleansing with hibiclenz by me, Wound irrigation with saline by me. Skin closed with 2 5-0 Prolene using simple sutures and sterile technique. Patient tolerated well. MDM: 12:08 Patient medically screened. kb 13:10 Data reviewed: vital signs, nurses notes. kb 13:11 Differential diagnosis: superficial laceration, tendon injury, vascular injury. kb Counseling: I had a detailed discussion with the patient and/or guardian regarding the historical points, exam findings, and any diagnostic results supporting the discharge/admit diagnosis, the need for outpatient follow up, a family practitioner, to return to the emergency department if symptoms worsen or persist or if there are any questions or concerns that arise at home. 10/15 12:16 Order name: Dressing - Wound; Complete Time: 13:40 kb 10/15 12:16 Order name: Gloves, Sterile: size 6; Complete Time: 12:33 kb 10/15 12:16 Order name: Prolene, Sutures: 5.0 prolene; Complete Time: 12:33 kb 10/15 12:16 Order name: Setup Suture Tray; Complete Time: 12:33 kb Administered Medications: 12:37 Drug: Lidocaine Infiltration (1 %) 1 vials 5 ml Infiltration once; to bedside {Note: nj1 Given to Anupama Bethea LITIGATION COORDINATOR for administration.} Volume: 5 ml; Route: Infiltration; 12:37 Not Given (Had vaccine within last 2 yearss): boostrix tdap0.5 ml IM once; as a single nj1 dose Disposition Summary: 10/16/23 13:13 Discharge Ordered Notes: Location: Home kb Condition: Stable kb Diagnosis - Laceration without foreign body of right middle finger without damage to nail kb Followup: kb - With: Emergency Department - When: As needed - Reason: Worsening of condition Followup: kb - With: Private Physician - When: 2 - 3 days - Reason: Recheck today's complaints, Continuance of care, Re-evaluation by your physician Discharge Instructions: - Discharge Summary Sheet kb - Laceration Care, Adult, [id number] kb Forms: - Medication Reconciliation Form kb - Thank You Letter kb - Antibiotic Education kb - Prescription Opioid Use kb - Patient Portal Instructions kb - Leadership Thank You Letter kb Signatures: Stephania Bethea FNP-C FNP-Cat Rea, RN RN nj1
[2023-10-16 13:45] VITALS: BP 125/91; TEMP 97.2; O2SAT 100
== END ==
LOC: ER 11:55
PROC: 0HQFXZZ Repair Right Hand Skin, External Approach (ICD-10-PCS; principal; 2023-10-16)
DX: S61.212A Laceration without foreign body of right middle finger without damage to nail, initial encounter (principal)
CPT/HCPCS: 99283; J2001